=== PATIENT | male | born 1985 | race Caucasian/White ===

== ENCOUNTER 2025-05-24 08:21 | Outpatient (CLI) | payer OTHER, SELFPAY ==
--- OUTSIDE RECORDS SUMMARY | 2025-05-24 08:30 | XMS_ITS | Continuity of Care Document ---
Author Organization [facility] Address [address] [place] [address] [address] [place] [address] Phone Care Team Providers Care Remote Sensing Advisor Name Role Phone Maggie Wilson Unavailable Unavailable Procedures Procedure Date Eye Exam, New Patient Advance Directives Directive Yes / No Effective Date File Name No Information Encounters Encounter Description Practice Location Reason(s) For Visit Diagnoses Date Provider Providers Copied on Encounter [facility], [address], [place], [place], [id number], [place] tel:[phone] [facility] No Information [phone] Katie Serrano. [address] [facility] [address] , [address], [place], [address], [place]. tel:[phone] Family History Family Member Type Diagnosis Age At Onset No Information Payers Payer name Insurance type Covered green party ID Authoriza tion(s) No Information Social History Type Description Quantity Date Captured Comments Sex Male Smoking Status No Information Chief Complaint And Reason For Visit No Information Reason For Referral Reason For Referral No Information History Of Present Illness Encounter Date Complaint History Of Prese nt Illness No Information Functional Status Date Functional Assessmen t No Information Instructions Date Instruction Additional Infor mation No Information Assessments Type Assessment Date No Information Patient Care Teams Name Effective Dates (start - stop) Status Members No Information
[2025-06-14 11:09] VITALS: BMI 34.2
--- NOTE | 2025-06-14 11:09 | WPDHOMESLEEP ---
Sleep Study - Home Unattended Date of Study: 05/24/25 Ordering Provider: Theresa Wheeler APRN Interpreting Provider: Melonie Rodriguez, DO Home Sleep Study Type: Watch PAT Height: 1.85 m Weight: 117.934 kg Body Mass Index: 34.2 Neck Circumference (inches): 17 [place]: 12 Reason for Sleep Study Daytime hypersomnia Sleep History The patient is a 39-year-old male that had a sleep study ordered by his primary care for evaluation of sleep apnea. The patient rarely awakens from sleep short of breath. He rarely awakens at night with heartburn, belching or cough. He occasionally snores and is occasionally loud enough that others complain. He occasionally has trouble sleeping when he has a cold. He rarely wakes up gasping for air throughout the night. He occasionally has breathing problems at night observed by himself or others. He constantly sweats excessively at night. He denies having heart palpitations or irregular heartbeats during the night. He occasionally falls asleep during the day but never while driving. He denies sleep paralysis and cataplexy. He occasionally has trouble at school or work due to sleepiness. He rarely experiences vivid dreamlike scenes upon awakening or falling asleep. He denies feeling afraid of going to sleep. He denies having nightmares. He rarely remembers his dreams. He rarely has thoughts racing through his mind. He denies feeling sad, depressed or anxious. He rarely has muscular tension. He occasionally notices parts of his body jerk. He rarely kicks during the night. He rarely has crawling and aching feelings in his legs. He occasionally has leg pain during the night. He denies grinding his teeth during sleep and denies awakening with morning jaw pain. He is rarely bothered by pain during the day but never awakened by pain during the night. He occasionally wakes up feeling stiff in the morning. He rarely wakes up with sore or achy muscles. He occasionally wakes up with pain in the neck, spine and other joints. He goes to bed at 10:00 p.m. on weekdays and 11:00 p.m. on the weekends. It takes him 20 minutes or less to fall asleep. He wakes up 2-3 times throughout the night to urinate and is able to fall back asleep immediately. He wakes up at 6:30 a.m. on weekdays and at 7:00 a.m. on the weekends. He typically gets 5 hours of sleep per night. He will stay in bed for 2-3 minutes after waking up in the morning. He currently lives with his and son. He denies consuming any caffeinated beverages within 2 hours of bedtime. He denies engaging in physical exercise before bedtime. He denies reading before falling asleep. He will watch television before falling asleep. He will take naps in afternoon or the evening but they are not refreshing. He consumes 3-4 caffeinated beverages per day. He smokes 1 pack of cigarettes per day. He denies alcohol and recreational drug use. [facility] Past Medical History Medical History HTN (hypertension) Surgical History Surgical History Hx of appendectomy History of shoulder surgery Family History Family History Mother Colon cancer Hypertension Father Hypertension Depression Grandparent Alcoholism Acute myocardial infarction Other Cerebrovascular accident Social History Social History Social History: 04/07/25 Confident filling out medical forms Smoking packs per day: 1 Smoking cigarettes per day: 20.0 Smoking status: Current every day smoker Tobacco type: cigarettes Alcohol intake: current Drinks per week: 1 Substance use: never Do You Feel Safe in your Home?: Yes Lack of Transportation: No Lack of Food: Never True Current Housing: I Have Housing Concerned About Future Housing: No Difficulty Paying Gas/Electric Bills: No Difficulty Paying for Meds: No Currently Unemployed: No Education: Don't Know Difficulty w/ Childcare or Family Care: No Living arrangements: with family Occupation/Education: occupation 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 Gender identity (if verbalized by the patient): Male Sexual Orientation (if Verbalized by the Patient): Straight or Heterosexual Spiritual care concerns: No Agree to blood products: Yes Medications Home Medications ?Medication ?Instructions ?Recorded ?Confirmed ?Type escitalopram oxalate 20 mg tablet 20 mg PO DAILY #90 tabs 02/15/25 04/07/25 Rx (Lexapro) losartan 50 mg tablet 50 mg PO BID #180 tabs 03/23/25 04/07/25 Rx nifedipine 90 mg tablet,extended 90 mg PO DAILY #90 tabs 03/23/25 04/07/25 Rx release 24 hr (Procardia XL) hydralazine 25 mg tablet 25 mg PO BID #60 tabs 04/07/25 04/07/25 Rx Sleep Procedure The sleep study was completed using [employer] a technically adequate device with seven channels: peripheral arterial tone, actigraphy, body position, snore, respiratory movement, pulse oximetry, sleep staging, and heart rate. Prior to using the device, the patient received verbal and written instructions for its application and was provided with the help desk phone number for additional telephonic instruction with 24-hour availability of qualified personnel to answer questions. The study was scored using CMS guidelines. Sleep Architecture The total recording time is 6 hrs, 49 min. The total sleep time is 5 hrs, 55 min. Sleep latency is 6 minutes. REM latency is 260 minutes. The patient had 15 episodes of waking. Sleep architecture shows 14.6% deep sleep, 70.8% light sleep, and (as % Total Sleep Time) showed NREM (Light 70.8%; Deep 14.6%), and a 14.6% stage REM. The patient spent 71.3% of total sleep time in the supine position. Sleep efficiency was 86.80. Respiratory Analysis The overall AHI (pAHI 4%:) is 13.1. The overall AHI (pAHI 3%:) is 22.4. The central AHI is 1.4. The AHI was 21.9 in NREM and 25.3 in REM sleep. The AHI was 17.8 in Supine and 33.4 in Non-supine sleep. Percent of [place] respirations is 0.0. Oximetry Data The oxygen desaturation index ([place] 4%:) is 10.8. The mean saturation is 94%, and the lowest saturation is 82%. Time spent with saturation < 88% is 1.2 minutes. Snoring Profile Snoring average intensity is 43 dB. The patient snored above 45 decibels for 74.7 minutes, 21.0% of sleep time. Cardiac Profile The average pulse rate is 60 beats per minutes. The lowest pulse rate is 41 bpm. The highest pulse rate reported is 90 bpm. Atrial fibrillation was not detected. Premature beats occur 0.2 per minute. Assessment and Plan Assessment and Plan (1) NANCY (obstructive sleep apnea): Code(s): G47.33 - Obstructive sleep apnea (adult) (pediatric) Status: Acute Assessment and Plan: The patient had an overall AHI of 13.1 with desaturation down to 82%. This is consistent with mild sleep apnea. Due to the patient's hypertension, he qualifies for treatment. I recommend that the patient be prescribed AutoPAP 5-15 cm H2O, CPAP mask/filters/tubing and heated humidity. A mandibular advancement device is also an acceptable treatment option. This should be used with all episodes of sleep.? Compliance should be reviewed within 31-90 days of starting therapy for usage greater than 4 hours per night greater than 70% of the nights. The patient should be asked about symptoms such as?excessive daytime sleepiness, quality of sleep, decreased nocturia, increased?mental functioning such as memory, mood, and concentration. Data The data obtained during this sleep study is adequate for interpretation. Certification This sleep study has been reviewed by a board certified sleep medicine physician.
== END 2025-05-25 10:59 | disposition home or self-care (01) ==
LOC: ANHCSM 08:22
PROVIDERS: PCP Nurse Practitioner Family; Visit Provider Nurse Practitioner Family
DX: G47.33 Obstructive sleep apnea (adult) (pediatric) (principal); E66.9 Obesity, unspecified; I10 Essential (primary) hypertension
CPT/HCPCS: 95800